=== PATIENT | male | born 1995 | race Hispanic/Latino ===

== ENCOUNTER 2017-08-27 13:03 | Emergency (ER) | payer MEDICAID, OTHER ==
[~2017-08-27 13:03] MED LIST: BUSP7.5T7 PO; CLON1TAB4 PO
== END 2017-08-27 14:33 | disposition home or self-care (01) ==
LOC: EDH 13:03
DX: S93.402A Sprain of unspecified ligament of left ankle, initial encounter (principal); W18.39XA Other fall on same level, initial encounter; Y93.01 Activity, walking, marching and hiking; Y92.89 Other specified places as the place of occurrence of the external cause; Y99.8 Other external cause status
CPT/HCPCS: 73610

== ENCOUNTER 2025-04-12 02:29 | Emergency (ER) | payer BC ==
[~2025-04-12] VITALS: Ht 180.3 cm; Wt 81.6 kg
[~2025-04-12 02:29] MED LIST changes: +CLON1TAB12 PO; -CLON1TAB4 PO
--- NOTE | 2025-04-12 02:35 | ERN ---
ED Note History of Present Illness Stated Complaint: SEIZURE Chief Complaint: Seizure Time Seen by MD: 02:32 Dictation: IS A 29-YEAR-OLD MALE COMING IN VIA EMS WITH COMPLAINTS OF A SEIZURE APPROXIMATE 30 MINUTES PRIOR TO ARRIVAL THAT LASTED PER EMS 10 MINUTES. PATIENT STATES HE HAS A HISTORY OF SEIZURES WHEN HE WAS YOUNGER HOWEVER HAS NOT HAD ONE SINCE 2017. NO FAMILY AT BEDSIDE MOTHER IS ON HER WAY TO THE HOSPITAL. EMS STATES THEY WERE TOLD IT THE SEIZURE LASTED APPROXIMATELY 10 MINUTES AND WHEN THEY GOT TO THE HOUSE HE WAS POSTICTAL. HE HIT HIS HEAD PATIENT HAS NO COMPLAINTS OF PAIN. HE DOES HAVE A PRIMARY CARE DOCTOR BUT DOES NOT BEING TREATED FOR SEIZURES AND HAS NOT BEEN ON ANY SEIZURE MEDICATIONS SINCE YEARS AGO. DENIES ANY HEADACHE NO FEVER NO CHILLS NO NAUSEA VOMITING. Allergies: Coded Allergies: No Known Allergies (Verified Allergy, Severe, 03/12/15) Home Meds Reported Medications Buspirone HCl (Buspirone HCl) 7.5 Mg Tablet, 7.5 MG PO BID, TAB 03/12/15 Clonazepam (Clonazepam) 1 Mg Tablet, 1 MG PO BID, TAB 03/12/15 Past Medical History Past Medical History: Seizure RN Note Reviewed/Agreed w/PFSH: Yes Review of System Dictation CONSTITUTIONAL: NEGATIVE EXCEPT FOR HPI HEAD/FACE: NEGATIVE EXCEPT FOR HPI EENT: NEGATIVE EXCEPT FOR HPI RESPIRATORY: NEGATIVE EXCEPT FOR HPI GASTROINTESTINAL/ABDOMINAL: NEGATIVE EXCEPT FOR HPI GENITOURINARY: NEGATIVE EXCEPT FOR HPI MUSCULOSKELETAL: NEGATIVE EXCEPT FOR HPI INTEGUMENTARY: NEGATIVE EXCEPT FOR HPI NEUROLOGICAL/PSYCH: NEGATIVE EXCEPT FOR HPI SEIZURE LASTING 10 MINUTES HEMATOLOGIC/LYMPHATIC: NEGATIVE EXCEPT FOR HPI ALL SYSTEMS NEGATIVE, EXCEPT NOTED ABOVE. 13 POINT REVIEW OF SYSTEMS ASSESSED AND ALL NEGATIVE EXCEPT FOR ABOVE. Initial Vital Sign VS Vital Signs Date Time Temp Pulse Resp B/P (MAP) Pulse Ox O2 Delivery O2 Flow Rate FiO2 04/12/25 02:31 106 16 135/87 97 Room Air 0 04/12/25 02:54 98.2 21 Physical Exam Dictation VITAL SIGNS REVIEWED GENERAL APPEARANCE: ALERT, ORIENTED X 3, NO ACUTE DISTRESS, WELL DEVELOPED, NOURISHED. NO COMPLAINTS OF PAIN AT THIS TIME. STATES HE DOES NOT REMEMBER SEIZURE HEAD AND FACE: NON-TRAUMATIC. EYES: PERRL, PINK CONJUNCTIVAS, EYELID NO TRAUMA, ANTERIOR CHAMBER WITH ARCUS SENILIS. EARS: PINNAS INTACT AND NO SIGNS OF TRAUMA OR ERYTHEMA EAR CANALS CLEAR AND NO DISCHARGE TM NO ERYTHEMA NOSE: NO DISCHARGE, NO BLEEDING. OROPHARYNX: MOUTH NORMAL, TONGUE PINK, PHARYNX CLEAR,NO ERYTHEMA, TONSILS NO EXUDATES, NO ABSCESSES NOTED, MUCOUS MEMBRANE MOIST NECK: SUPPLE, NON-TENDER, NO THYROMEGALY, NO MASSES, NO JVD, NO BRUITS BREAST:DEFERRED CHEST:NO TENDERNESS, NO CREPITUS, NO PARADOXICAL MOVEMENT, NO RETRACTIONS LUNGS:CLEAR, WELL-VENTILATED, SYMMETRIC, NO RALES, NO WHEEZING, NO RHONCHI, NO STRIDOR, GOOD BREATH SOUNDS BILATERALLY HEART: REGULAR RATE, REGULAR RHYTHM, NO MURMUR, NO GALLOPS VASCULAR: NO PERIPHERAL EDEMA, ABDOMEN: SOFT, POSITIVE BOWEL SOUNDS, NONDISTENDED, NO GUARDING, NONTENDER, NO REBOUND, NO MASSES NO HEPATOMEGALY, NO SPLENOMEGALY, NO KNOWLES'S SIGN, NO HERNIAS. RECTAL: DEFERRED GENITAL: DEFERRED NEUROLOGICAL: NORMAL SPEECH, MOTOR FUNCTION INTACT, SENSORY FUNCTION INTACT MUSCULOSKELETAL: NECK NONTENDER, FULL RANGE OF MOTION, BACK NONTENDER, FULL RANGE OF MOTION, EXTREMITIES: NONTENDER, FULL RANGE OF MOTION SKIN: COLOR PINK, DRY, NO TURGOR, NO RASH, NO LACERATIONS, NO ABRASIONS, NO CON TUSIONS. LYMPHATIC: DEFERRED Results (Laboratory/Radiology) Laboratory/Radiology Laboratory Tests Test 04/12/25 03:06 04/12/25 04:51 White Blood Count 9.5 K/uL (4.8-10.8) Red Blood Count 4.11 MIL/uL (4.50-6.20) L Hemoglobin 13.1 g/dL (14.0-18.0) L Hematocrit 38.8 % (42-54) L Mean Corpuscular Volume 94.4 fL (79-99) Mean Corpuscular Hemoglobin 31.9 pg (27.0-33.0) Mean Corpuscular Hemoglobin Concent 33.8 g/dL (32.0-36.0) Red Cell Distribution Width 13.0 % (11.0-15.5) Platelet Count 230 K/uL (130-400) Mean Platelet Volume 11.5 fL (7.5-10.5) H Immature Granulocyte % (Auto) 0.3 % (0-1) Neutrophils (%) (Auto) 76.9 % (40.0-77.0) Lymphocytes (%) (Auto) 14.0 % (21.0-51.0) L Monocytes (%) (Auto) 7.0 % (3.0-13.0) Eosinophils (%) (Auto) 1.4 % (0.0-8.0) Basophils (%) (Auto) 0.4 % (0.0-5.0) Neutrophils # (Auto) 7.3 K/uL (1.8-7.7) Lymphocytes # (Auto) 1.3 K/uL (1.0-4.8) Monocytes # (Auto) 0.7 K/uL (0.1-1.0) Eosinophils # (Auto) 0.13 K/uL (0.00-0.70) Basophils # (Auto) 0.04 K/uL (0.00-0.20) Absolute Immature Granulocyte (auto 0.03 K/uL (0-1) Nucleated Red Blood Cells 0.0 % (0.0-0.19) Sodium Level 139 mmol/L (136-145) Potassium Level 3.8 mmol/L (3.5-5.1) Chloride Level 104 mmol/L (101-111) Carbon Dioxide Level 29 mmol/L (21-32) Blood Urea Nitrogen 16 mg/dL (7-18) Creatinine 1.1 mg/dL (0.5-1.3) Glomerular Filtration Rate Calc 94 mL/min (>90) Random Glucose 71 mg/dL (70-105) Total Calcium 8.8 mg/dL (8.5-10.1) Urine Color LIGHT-YELLOW (YELLOW) Urine Appearance CLEAR (CLEAR) Urine pH 5.5 (5.0-8.0) Urine Specific [place] 1.024 (1.001-1.031) Urine Protein NEGATIVE mg/dL (NEGATIVE) Urine Glucose (UA) NEGATIVE mg/dL (NEGATIVE) Urine Ketones NEGATIVE mg/dL (NEGATIVE) Urine Occult Blood NEGATIVE (NEGATIVE) Urine Nitrate NEGATIVE (NEGATIVE) Urine Bilirubin NEGATIVE mg/dL (NEGATIVE) Urine Urobilinogen 0.2 mg/dL (0.2-1.0) Urine Leukocyte Esterase NEGATIVE Benigno/uL Urine Opiates Screen NEGATIVE (NEGATIVE) Urine Barbiturates Screen NEGATIVE (NEGATIVE) Urine Phencyclidine Screen NEGATIVE (NEGATIVE) Urine Amphetamines Screen POSITIVE (NEGATIVE) H Urine Benzodiazepines Screen NEGATIVE (NEGATIVE) Urine Cocaine Screen NEGATIVE (NEGATIVE) Urine Marijuana (THC) Screen POSITIVE (NEGATIVE) H Labs Reviewed?: Yes ED Course ED Course Orders Procedure Category Date Status Time Drug Screen Urine LAB 04/12/25 Complete 02: Cbc With Differential LAB 04/12/25 Complete 02:31 Urinalysis Profile LAB 04/12/25 Complete 02:31 Basic Metabolic Panel LAB 04/12/25 Complete 02:31 Levetiracetam 500 PHA 04/12/25 In Process Mg/5 Ml Sd V (Keppra 5 03:30 Levetiracetam 500 PHA 04/12/25 Complete Mg/5 Ml Sd V (Keppra 5 03:11 Current Medications Medications (Trade) Dose Ordered Sig/Jim Route PRN Reason Start Time Stop Time Status Last Admin Dose Admin Levetiracetam (kepPRA 500 MG/5 ML SD VIAL) 500 mg STK-MED ONCE IV 04/12/25 03:11 04/12/25 03:11 DC Levetiracetam 1000 mg/Sodium Chloride 100 ml @ 400 mls/hr Q8H IV 04/12/25 03:30 05/12/25 03:29 04/12/25 03:28 Vital Signs Date Time Temp Pulse Resp B/P (MAP) Pulse Ox O2 Delivery O2 Flow Rate FiO2 04/12/25 05:25 80 15 118/75 99 Room Air* 0 04/12/25 03:55 81 15 135/83 100 Room Air* 0 04/12/25 02:54 98.2 86 17 137/80 100 Room Air* 0 04/12/25 02:31 106 16 135/87 97 Room Air 0 Medical Decision Making MDM IS A 29-YEAR-OLD MALE COMING IN VIA EMS WITH COMPLAINTS OF A SEIZURE APPROXIMATE 30 MINUTES PRIOR TO ARRIVAL THAT LASTED PER EMS 10 MINUTES. PATIENT STATES HE HAS A HISTORY OF SEIZURES WHEN HE WAS YOUNGER HOWEVER HAS NOT HAD ONE SINCE 2017. NO FAMILY AT BEDSIDE MOTHER IS ON HER WAY TO THE HOSPITAL. EMS STATES THEY WERE TOLD IT THE SEIZURE LASTED APPROXIMATELY 10 MINUTES AND WHEN THEY GOT TO THE HOUSE HE WAS POSTICTAL. HE HIT HIS HEAD PATIENT HAS NO COMPLAINTS OF PAIN. HE DOES HAVE A PRIMARY CARE DOCTOR BUT DOES NOT BEING TREATED FOR SEIZURES AND HAS NOT BEEN ON ANY SEIZURE MEDICATIONS SINCE YEARS AGO. DENIES ANY HEADACHE NO FEVER NO CHILLS NO NAUSEA VOMITING. Differential diagnosis including seizure, acute infections, illicit drug use Laboratory was performed including CBC, BNP, UDS, UA Drug screen was positive for amphetamines and cannabis Patient received Keppra 1000 mg on arrival No episodes of seizure was reports while patient was in the emergency department. I discussed the findings on the UDS screen with the patient and I advised the patient to quit dose illicit drugs. Patient to follow up with his neurologist Dr. Short DX & DISP Disposition: Discharge Departure Impression: Primary Impression: Seizure Additional Impressions: Illicit drug use, Cannabis abuse, Cannabis abuse with cannabis-induced anxiety disorder Condition: Stable Scripts Levetiracetam (Keppra) 500 Mg Tablet 1 TAB PO BID for 30 Days, #60 TAB 0 Refills Prov: CHELY MORENO MD 04/12/25 Additional Instructions: RETURN TO ER FOR ANY ACUTE OR WORSENING SYMPTOMS. FOLLOW-UP IN 1-2 DAYS WITH PRIMARY PROVIDER FOR RECHECK OF TODAY'S SYMPTOMS. Referrals: AGATA ANTON MD (PCP) Time of Disposition: 05:36 CLAUDIA KELSEY NP Apr 12, 2025 02:34 CHELY MORENO MD Apr 12, 2025 05:38
--- NOTE | 2025-04-12 02:54 | NUR ---
PT PROVIDED WITH A URINAL IN ATTEMPT TO COLLECT URINE SAMPLE ORDERED
[2025-04-12 03:23] LABS: IMMATURE GRANULOCYTE ABSOLUTE 0.03 K/uL (0-1); NUCLEATED RED BLOOD CELLS 0.0 % (0.0-0.19); PLATELET COUNT (AUTO) 230 K/uL (130-400); RED BLOOD CELL COUNT(AUTO) 4.11 MIL/uL (4.50-6.20); RED CELL DISTRIBUTION WIDTH 13.0 % (11.0-15.5); WHITE BLOOD COUNT (AUTO) 9.5 K/uL (4.8-10.8)
[2025-04-12 03:24] LABS: CREATININE 1.1 mg/dL (0.5-1.3); GLOMERULAR FILTR. RATE CALC 94.0 mL/min (>90); GLUCOSE,RANDOM 71.0 mg/dL (70-105); SODIUM SERUM 139.0 mmol/L (136-145); UREA NITROGEN, BLOOD 16.0 mg/dL (7-18)
[2025-04-12] MEDS: leveTIRACEtam 500 MG/5 ML SD V 1,000 MG in 0.9%NACL 100ML 100 ML IV SCH (03:28)
[2025-04-12 05:07] LABS: APPEARANCE,URINE CLEAR (CLEAR); GLUCOSE, URINE (UA) NEGATIVE (NEGATIVE); LEUKOCYTE ESTERASE ,URINE NEGATIVE Leu/uL (NEGATIVE); NITRATE,URINE NEGATIVE (NEGATIVE); OCCULT BLOOD,URINE NEGATIVE (NEGATIVE)
[2025-04-12 05:10] LABS: ADD UA MICROSCOPIC NO
[2025-04-12 05:14] LABS: AMPHET/METH SCREEN,URINE POSITIVE (NEGATIVE); BARBITURATE SCREEN, URINE NEGATIVE (NEGATIVE); CANNABINOID SCREEN,URINE POSITIVE (NEGATIVE); COCAINE SCREEN,URINE NEGATIVE (NEGATIVE)
[2025-04-12] MEDS ORDERED: LEVE-43 PO (05:35)
[2025-04-12 05:42] VITALS: BP 120/80; PULSE 71; RESP 15; TEMP 98.1; O2SAT 100
== END 2025-04-12 05:50 | disposition home or self-care (01) ==
LOC: EDH 02:29
DX: R56.9 Unspecified convulsions (principal); F12.180 Cannabis abuse with cannabis-induced anxiety disorder; F41.9 Anxiety disorder, unspecified; Z79.899 Other long term (current) drug therapy
CPT/HCPCS: 99284; 96365; 80048; 80305; 85025; 36415; 81003; J1953